=== PATIENT | female | born 1940 | race Caucasian/White ===

== ENCOUNTER → 2017-02-05 | Outpatient (CLI) | payer OTHER | LOC: BMCIMAGING 10:12 | DX: Z12.31 Encounter for screening mammogram for malignant neoplasm of breast (principal); Z80.3 Family history of malignant neoplasm of breast | CPT/HCPCS: G0202 ==

== ENCOUNTER → 2017-02-09 | Outpatient (CLI) | payer OTHER | LOC: BMCIMAGING 12:46 | DX: Z12.39 Encounter for other screening for malignant neoplasm of breast (principal); N63 Unspecified lump in breast ==

== ENCOUNTER → 2017-02-14 | Day surgery (SDC) | payer OTHER ==
[~2017-02-14] MED LIST: THROMBIN (BOVINE) 5,000 UNIT VIAL TP ONE
== END | disposition home or self-care (01) ==
LOC: FIMAGING 11:11
PROVIDERS: ATTEND Family Medicine
DX: N63 Unspecified lump in breast (principal); R92.0 Mammographic microcalcification found on diagnostic imaging of breast
CPT/HCPCS: G0204

== ENCOUNTER 2017-04-06 07:06 | Day surgery (SDC) | payer OTHER ==
[~2017-04-06 07:06] MED LIST changes: +BUPIVACAINE 0.5% 30 ML SDV ONE; +LIDOCAINE 1% 300 MG/30 ML SDV ONE; -THROMBIN (BOVINE) 5,000 UNIT VIAL TP ONE; +VANCOMYCIN HCL/NORMAL SALINE 250 ML IV ONE
[2017-04-06] MEDS ORDERED: LIDOCAINE 1% 2 ML INJ ONE (07:43)
[2017-04-06] MEDS ORDERED: ceFAZolin 2 GM/DEXTROSE 100 ML IV ONE (08:00)
[2017-04-06] MEDS ORDERED: LR 1,000 ML IV ONE (08:08)
[2017-04-06] MEDS ORDERED: LIDOCAINE 1% 5 ML SDV ID PRN (08:08)
[2017-04-06] MEDS ORDERED: KETOROLAC 30 MG/1 ML SDV ONE (09:04)
[2017-04-06] MEDS ORDERED: DEXAMETHASONE 4 MG/ML VIAL ONE (09:04)
[2017-04-06] MEDS ORDERED: PROPOFOL 200 MG/20 ML VIAL ONE (09:04)
[2017-04-06] MEDS ORDERED: LIDOCAINE 2% 100 MG/5 ML SYR ONE (09:05)
[2017-04-06] MEDS ORDERED: ROCURONIUM 50 MG/5 ML VIAL ONE (09:05)
[2017-04-06] MEDS ORDERED: METOCLOPRAMIDE 10 MG/2 ML VIAL ONE (09:05)
[2017-04-06] MEDS ORDERED: MIDAZOLAM 2 MG/2 ML VIAL ONE (09:05)
[2017-04-06 11:40] VITALS: BP 149/73; PULSE 84; RESP 12; TEMP 97.5
[2017-04-06 12:20] VITALS: O2SAT 96
--- NOTE | 2017-04-10 03:40 | GOP ---
[f rep st] OPERATIVE REPORT DATE OF OPERATION: 04/06/2017 SURGEON: Shannon Cabrales MD FIELD SUPPORT ENGINEER: Agueda Daniel, [place]. ANESTHESIA: Dr. Kahlil Blanco, general. PREOPERATIVE DIAGNOSIS: Metaplastic breast cancer, right upper inner quadrant. POSTOPERATIVE DIAGNOSIS: Metaplastic breast cancer, right upper inner quadrant. PROCEDURE PERFORMED: 1. Left ultrasound-guided internal jugular PowerPort. 2. Right breast lumpectomy. 3. Right sentinel lymph node. FINDINGS: Negative lymph node. SPECIMENS: Lumpectomy, additional margins, and sentinel lymph node. ESTIMATED BLOOD LOSS: 10 cc. INDICATIONS: The patient is a 77-year-old woman, who has been diagnosed with metaplastic breast cancer. She presents for a lumpectomy and port placement. DESCRIPTION OF PROCEDURE: The patient was brought into the operating room, placed supine on the table. General anesthesia was administered. Her bilateral neck and chest were prepped and draped in the usual sterile fashion. I tried accessing her subclavian vein. I had dark return of blood flow, but the wire did not thread easily. I then used the ultrasound to identify the left internal jugular vein. Went to access this under ultrasound guidance, with dark return of blood flow, and I threaded the guidewire and removed the needle. I created a pocket to accommodate the port in the left chest. I tunneled the catheter up to the insertion site under fluoroscopy. I measured the catheter and cut it to size. Under fluoroscopy and using the Seldinger technique, I placed a dilator and sheath over the wire. I removed the wire and the dilator. The catheter was threaded through the sheath and the sheath was peeled away. Placement was confirmed with fluoroscopy. The port withdrew blood easily and was flushed with heparin. The pocket was closed with 3-0 Vicryl, followed by 4-0 Monocryl. Dermabond applied. Next, attention was drawn to the previous lumpectomy cavity on the right breast. I made an ellipse around the previous incision. I created superior and inferior skin flaps. I dissected down to the level of the pectoralis fascia including the pectoralis fascia. The specimen was marked green anterior , red superior, yellow medial, blue inferior, orange lateral, black posterior. This was submitted to Pathology fresh. I obtained additional margins inked red superior, yellow medial, blue inferior, orange lateral, black posterior. These were submitted to Pathology for permanent. Hemostasis was achieved in the cavity. The cavity was marked with 3 clips. Next, I made an incision beneath the hair bearing portion on her right axilla. I dissected down through the subcutaneous space and broke into the axillary space. I used the gamma probe to identify the sentinel lymph node. Once this was excised, it was submitted to Pathology. Hemostasis was achieved in this cavity. The pathology returned negative. Each wound was closed with 3-0 Vicryl , followed by 4-0 Monocryl. Mastisol, Steri-Strips, and a sterile dressing were applied. She was awakened in the operating room, extubated, transferred to PACU in stable condition. /[id number]/MODL MTDD
== END 2017-04-06 13:20 | disposition home or self-care (01) ==
LOC: FSGY 07:06
PROVIDERS: ATTEND Surgery
PROC: 02HV33Z Insertion of Infusion Device into Superior Vena Cava, Percutaneous Approach (ICD-10-PCS; principal; 2017-04-06 09:30)
PROC: 07B50ZX Excision of Right Axillary Lymphatic, Open Approach, Diagnostic (ICD-10-PCS; principal; 2017-04-06 09:30)
PROC: 0JH60XZ Insertion of Tunneled Vascular Access Device into Chest Subcutaneous Tissue and Fascia, Open Approach (ICD-10-PCS; principal; 2017-04-06 09:30)
PROC: 0HBT0ZX Excision of Right Breast, Open Approach, Diagnostic (ICD-10-PCS; principal; 2017-04-06 09:30)
PROC: 3E0W3KZ Introduction of Other Diagnostic Substance into Lymphatics, Percutaneous Approach (ICD-10-PCS; 2017-04-06 09:30)
DX: C50.211 Malignant neoplasm of upper-inner quadrant of right female breast (principal); I10 Essential (primary) hypertension; E78.5 Hyperlipidemia, unspecified; E03.9 Hypothyroidism, unspecified; K21.9 Gastro-esophageal reflux disease without esophagitis; Z86.010 Personal history of colon polyps; Z80.3 Family history of malignant neoplasm of breast
CPT/HCPCS: 19301; 36561; 38525; 71010; 76001; 78195; A9520; C1788; J0690; J1100; J1642; J1885; J2001; J2250; J2704; J2765; J3370

== ENCOUNTER → 2017-08-13 | Outpatient (CLI) | payer OTHER | LOC: FIMAGING 10:03 | PROVIDERS: ATTEND Family Medicine | DX: R92.8 Other abnormal and inconclusive findings on diagnostic imaging of breast (principal); Z85.3 Personal history of malignant neoplasm of breast | CPT/HCPCS: G0204 ==

== ENCOUNTER → 2018-02-08 | Outpatient (CLI) | payer OTHER | LOC: FIMAGING 09:32 | PROVIDERS: ATTEND Family Medicine | DX: R92.8 Other abnormal and inconclusive findings on diagnostic imaging of breast (principal); C50.911 Malignant neoplasm of unspecified site of right female breast ==

== ENCOUNTER → 2018-08-13 | Outpatient (CLI) | payer OTHER | LOC: FIMAGING 10:40 | PROVIDERS: ATTEND Family Medicine | DX: Z12.31 Encounter for screening mammogram for malignant neoplasm of breast (principal); Z85.3 Personal history of malignant neoplasm of breast; Z80.3 Family history of malignant neoplasm of breast ==